=== PATIENT | male | born 1950 | race Caucasian/White ===

== ENCOUNTER 2018-11-09 13:36 | Emergency (ER) | payer MEDICARE, OTHER ==
[2018-11-09] MEDS ORDERED: FUROSEMIDE IV 40MG/4ML VIAL IVP ONE (14:17)
[2018-11-09 14:45] LABS: BASO % 0.3 % (0-6); EOS % 1.1 % (0-6); GRAN % 72.1 % (47-80); HEMATOCRIT 47.3 % (42.0-52.0); HEMOGLOBIN 15.2 gm/dl (14.0-18.0); LYMPH % 16.6 % (16-45); MEAN CELL VOLUME 100.2 fl (81-97); MEAN CORPUSCULAR HEMOGLOBIN 32.2 pg (27-33); MEAN CORPUSCULAR HGB CONC 32.1 g/dl (32-36); MEAN PLATELET VOLUME 12.8 fl (7.4-10.4); MONO % 9.9 % (0-9); PLATELET COUNT 138 K/uL (130-400); RED BLOOD COUNT 4.72 M/uL (4.40-5.70); RED CELL DISTRIBUTION WIDTH 17.5 % (11.5-14.5); WHITE BLOOD COUNT W/O DIFF 7.6 K/uL (4.2-12.2)
[2018-11-09 14:46] LABS: URINE APPEARANCE CLEAR; URINE BILIRUBIN NEGATIVE (NEGATIVE); URINE BLOOD NEGATIVE (NEGATIVE); URINE COLOR YELLOW; URINE GLUCOSE (UA) NEGATIVE (NEGATIVE); URINE KETONE NEGATIVE (NEGATIVE); URINE LEUKOCYTE ESTERASE NEGATIVE (NEGATIVE); URINE NITRITE NEGATIVE (NEGATIVE); URINE UROBILINOGEN 0.2 E.U./dL (0.20 - 1.00)
[2018-11-09 14:54] LABS: URINE EPITHELIAL CELLS NONE SEEN (FEW); URINE RBC NONE SEEN (NONE SEEN); URINE WBC NONE SEEN (0-2/hpf)
[2018-11-09 14:59] LABS: BILIRUBIN,TOTAL 1.5 mg/dL (0.2-1.0); CREATININE 1.6 mg/dL (0.7-1.2); TOTAL PROTEIN 8.1 g/dL (6.6-8.7)
[2018-11-09 15:04] LABS: ALB/GLOB RATIO 0.7 (1.1-1.8); ALBUMIN 3.4 g/dL (4.0-5.0)
[2018-11-09] MEDS ORDERED: HYDROMORPHONE HCL 2 MG/ML VIAL IVP ONE (15:33)
--- NOTE | 2018-11-09 16:25 | Emergency Department Record ---
History of Present Illness - General Chief complaint: Male Urogenital Problem Stated complaint: groin swelling Time Seen by Provider: 11/09/18 14:03 Source: Patient, Family Mode of Arrival: Wheelchair Limitations: No limitations - History of Present Illness Initial comments: pt here for scrotal swelling and bleeding. pt has recently increased his MD mark Complaint: Testicle swelling Onset/Timin -: Days(s) Location: Penis Radiation: None Severity: Severe Consistency: Getting worse Improves with: None Worsens with: Palpation, Urination Reports: Swelling, Other (bleeding from scrotum) - Related Data Home Medications Medication Instructions Recorded Confirmed Last Taken Allopurinol 100 mg PO 11/09/18 11/09/18 Atorvastatin Calcium 20 mg PO 11/09/18 11/08/18 Carvedilol 25 mg PO 11/09/18 11/09/18 Cholecalciferol (Vitamin D3) 1,000 unit PO 11/09/18 11/09/18 [Vitamin D3] Glipizide 10 mg PO 11/09/18 11/09/18 Hydralazine HCl 1 tab PO DAILY 11/09/18 11/09/18 11/08/18 Spironolactone 0.5 tab PO DAILY 11/09/18 11/09/18 11/08/18 Allergies Allergy/AdvReac Type Severity Reaction Status Date / Time No Known Drug Allergies Allergy Verified 11/25/14 21:30 Travel Screening - Travel/Exposure Within Last 30 Days Have you traveled within the last 30 days?: No - Travel/Exposure Within Last Year Have you traveled outside the [place] in the last year?: No - Additonal Travel Details Have you been exposed to anyone with a communicable illness?: No - Travel Symptoms Symptom Screening: None Review of Systems Reviewed: No additional complaints except as noted below Constitutional: Reports: As per HPI. Denies: Chills, Fever, Malaise, Night sweats, Weakness, Weight change Eyes: Reports: As per HPI. Denies: Eye discharge, Eye pain, Photophobia, Vision change ENT: Reports: As per HPI. Denies: Congestion, Dental pain, Ear pain, Epistaxis , Hearing loss, Throat pain Respiratory: Reports: As per HPI. Denies: Cough, Dyspnea, Hemoptysis, Stridor, Wheezes Cardiovascular: Reports: As per HPI. Denies: Arrhythmia, Chest pain, Dyspnea on exertion, Edema, Murmurs, Orthopnea, Palpitations, Paroxysmal nocturnal dyspnea, Rheumatic Fever, Syncope Endocrine: Reports: As per HPI. Denies: Fatigue, Heat or cold intolerance, Polydipsia, Polyuria Gastrointestinal: Reports: As per HPI. Denies: Abdominal pain, Constipation, Diarrhea, Hematemesis, Hematochezia, Melena, Nausea, Vomiting Genitourinary: Reports: As per HPI. Denies: Dysuria, Frequency, Hematuria, Incontinence, Retention, Testicular pain, Testicular mass, Urgency Musculoskeletal: Reports: As per HPI. Denies: Arthralgia, Back pain, Gout, Joint swelling, Myalgia, Neck pain Skin: Reports: As per HPI. Denies: Bruising, Change in color, Change in hair/ nails, Lesions, Pruritus, Rash Neurological: Reports: As per HPI. Denies: Abnormal gait, Confusion, Headache, Numbness, Paresthesias, Seizure, Tingling, Tremors, Vertigo, Weakness Psychiatric: Reports: As per HPI. Denies: Anxiety, Auditory hallucinations, Depression, Homicidal thoughts, Suicidal thoughts, Visual hallucinations Hematological/Lymphatic: Reports: As per HPI. Denies: Anemia, Blood Clots, Easy bleeding, Easy bruising, Swollen glands Past Medical History - SOCIAL HISTORY Smoking Status: Never smoker Alcohol Use: None Drug Use: None - RESPIRATORY Hx Respiratory Disorders: No - CARDIOVASCULAR Hx Cardio Disorders: Yes Hx CHF: Yes Hx Irregular Heartbeat: Yes - NEURO Hx Neuro Disorders: No - GI Hx GI Disorders: No - Hx Genitourinary Disorders: No - ENDOCRINE Hx Endocrine Disorders: Yes Hx Diabetes: Yes - MUSCULOSKELETAL Hx Musculoskeletal Disorders: No - PSYCH Hx Psych Problems: No - HEMATOLOGY/ONCOLOGY Hx Hematology/Oncology Disorders: No Family Medical History Any Significant Family History?: No Physical Exam - General General Appearance: Alert, Oriented x3, Cooperative, Mild distress - Head Head exam: Normal inspection - Eye Eye exam: Normal appearance, PERRL, EOMI Pupils: Normal accommodation - ENT ENT exam: Normal exam, Mucous membranes moist, Normal external ear exam, Normal orophraynx Ear exam: Normal external inspection. negative: External canal tenderness Nasal Exam: Normal inspection. negative: Discharge, Sinus tenderness Mouth exam: Normal external inspection, Tongue normal Teeth exam: Normal inspection. negative: Dental caries Throat exam: Normal inspection. negative: Tonsillar erythema, Tonsillar exudate - Neck Neck exam: Normal inspection, Full ROM. negative: Tenderness - Respiratory Respiratory exam: Normal lung sounds bilaterally. negative: Respiratory distress - Cardiovascular Cardiovascular Exam: Regular rate, Normal rhythm, Normal heart sounds - GI/Abdominal GI/Abdominal exam: Soft, Normal bowel sounds. negative: Tenderness - Rectal Rectal exam: Deferred - exam: Scrotal swelling, Other (bleeding from splits in scrotum. scrotum is the size of a grapefruit) - Extremities Extremities exam: Normal inspection, Full ROM, Normal capillary refill. negative: Tenderness - Back Back exam: Reports: Normal inspection, Full ROM. Denies: Muscle spasm, Rash noted, Tenderness - Neurological Neurological exam: Alert, CN II-XII intact, Normal gait, Oriented X3 - Psychiatric Psychiatric exam: Normal affect, Normal mood - Skin Skin exam: Dry, Intact, Normal color, Warm Course Vital Signs 11/09/18 11/09/18 11/09/18 13:55 14:16 15:55 Temperature 97.3 F L 97.3 F L Pulse Rate [ 89 69 Pulse Ox Probe] Respiratory 22 22 20 Rate Blood Pressure 130/90 [Left Arm] Blood Pressure 157/118 [Right Arm] Pulse Ox 92 L 92 L 94 L - Reevaluation(s) Reevaluation #1: 11/09/18 16:33 us shows diffuse scrotal swelling, bilateral hydroceles. epididimytis, r varicocele Reevaluation #2: 11/09/18 16:44 d/w dr oneill Reevaluation #3: 11/09/18 17:51 d/w dr phillips who was search engine optimization specialist. he wanted pt sent to ed. d/w dr mcfarlane who accepted the pt Medical Decision Making - Lab Data Result diagrams: 11/09/18 14:37 11/09/18 14:37 Lab Results 11/09/18 11/09/18 11/09/18 Range/Units 14:37 14:37 14:37 WBC 7.6 (4.2-12.2) K/uL RBC 4.72 (4.40-5.70) M/uL Hgb 15.2 (14.0-18.0) gm/dl Hct 47.3 (42.0-52.0) % MCV 100.2 H (81-97) fl MCH 32.2 (27-33) pg MCHC 32.1 (32-36) g/dl RDW 17.5 H (11.5-14.5) % Plt Count 138 (130-400) K/uL MPV 12.8 H (7.4-10.4) fl Gran % 72.1 (47-80) % Lymphocytes % 16.6 (16-45) % Monocytes % 9.9 H (0-9) % Eosinophils % 1.1 (0-6) % Basophils % 0.3 (0-6) % Sodium 141 (136-145) mmol/L Potassium 5.1 H (3.4-4.5) mmol/L Chloride 102 (98-107) mmol/L Carbon Dioxide 27.0 (22-29) mmol/L Anion Gap 12.0 (7-16) BUN 46 H (8-23) mg/dL Creatinine 1.6 H (0.7-1.2) mg/dL Estimated GFR 46 mL/min Random Glucose 93 (74-109) mg/dL Calcium 11.3 H (8.8-10.2) mg/dL Total Bilirubin 1.50 H (0.2-1.0) mg/dL AST 29 (10.0-50.0) U/L ALT 15 (<41) U/L Alkaline Phosphatase 90 (55-149) U/L NT-Pro-B Natriuret Pep 3025.00 H (<125) pg/mL Total Protein 8.1 (6.6-8.7) g/dL Albumin 3.4 L (4.0-5.0) g/dL Globulin 4.7 (1.4-4.8) gm/dL Albumin/Globulin Ratio 0.7 L (1.1-1.8) Urine Color Yellow Urine Appearance Clear Urine pH 6.0 (5.0-8.0) Ur Specific [place] 1.020 (1.002-1.030) Urine Protein 30 mg/dl H (NEGATIVE) Urine Glucose (UA) Negative (NEGATIVE) Urine Ketones Negative (NEGATIVE) Urine Blood Negative (NEGATIVE) Urine Nitrite Negative (NEGATIVE) Urine Bilirubin Negative (NEGATIVE) Urine Urobilinogen 0.2 (0.20 - 1.00) E.U./dL Ur Leukocyte Esterase Negative (NEGATIVE) Urine RBC None seen (NONE SEEN) Urine WBC None seen (0-2/hpf) Ur Epithelial Cells None seen (FEW) Disposition Disposition: Transfer Clinical Impression: Swelling of scrotum, Epididymitis, Bilateral hydrocele, Renal insufficiency Disposition: Acute Care Hospital Transfer Transfer To: [facility] Reason For Transfer: needs urology Accepting Physician: alan mcgraw black Time Discussed w/Accepting Physician: 17:53 Forms: Patient Portal Access Quality - Quality Measures Quality Measures: N/A - Blood Pressure Screening Does Patient Have Any of the Following: No Blood Pressure Classification: Pre-Hypertensive BP Reading Systolic Measurement: 129 Diastolic Measurement: 88 Screening for High Blood Pressure: < Pre-Hypertensive BP, F/U Documented > [ [id number]] Pre-Hypertensive Follow-up Interventions: Follow-up with rescreen every year.
[2018-11-09 16:35] LABS: INR 2.7; PROTHROMBIN TIME (PATIENT) 26.6 SECONDS (9.5-12.1)
[2018-11-09] MEDS ORDERED: LEVOFLOXACIN/D5W 750 MG/150 ML BAG IVPB ONE (16:38)
--- NOTE | 2018-11-11 08:37 | ULTRASOUND REPORT ---
EXAM: ULTRASOUND OF THE TESTICLES HISTORY: TESTICULAR PAIN. TECHNIQUE: Sonographic evaluation of the testicles was performed using odom scale imaging. FINDINGS: The right testicle measures 4.7 x 3.1 x 2.7 cm. The left testicle measures 3.9 x 3.0 x 2.9 cm. No intratesticular lesion is appreciated. Normal arterial and venous flow to both testicles. There is a large right hydrocele present. There is equivocal right varicocele. The left epididymis is enlarged. There is a large left hydrocele present. There is diffuse scrotal thickening. IMPRESSION: 1. BILATERAL HYDROCELES. 2. ENLARGED LEFT EPIDIDYMIS WITH INCREASED FLOW. EPIDIDYMITIS IS NOT EXCLUDED. 3. EQUIVOCAL VARICOCELE IN THE RIGHT HEMISCROTUM. 4. DIFFUSE SCROTAL THICKENING. JOB NUMBER: [id number] [facility]
== END 2018-11-09 22:35 | disposition short-term general hospital (02) ==
LOC: ER 13:36
DX: N50.89 Other specified disorders of the male genital organs (principal); N43.3 Hydrocele, unspecified; I86.1 Scrotal varices; N28.9 Disorder of kidney and ureter, unspecified; I50.9 Heart failure, unspecified; E11.9 Type 2 diabetes mellitus without complications; Z79.84 Long term (current) use of oral hypoglycemic drugs
CPT/HCPCS: 76870; 80053; 81001; 83880; 85025; 85610; 96365; 96375; 99285; J1940; J1956